=== PATIENT | female | born 1960 ===

== ENCOUNTER 2017-09-30 18:31 | Inpatient (IN) | payer MEDICAID ==
[2017-09-30 20:48] LABS: BASO % 0.1 % (0.0-2.0); HEMOGLOBIN 14.9 g/dL (12.0-16.0); LYMPH % 6.4 % (20.0-40.0); MEAN CELL VOLUME 89.1 fl (81.0-99.0); MEAN CORPUSCULAR HEMOGLOBIN 30.2 pg (27.0-31.0); MEAN CORPUSCULAR HGB CONC 33.8 g/dL (33.0-37.0); MEAN PLATELET VOLUME 8.6 fl (7.2-11.7); MONO # 0.9 K/uL (0.0-0.8); NEUT # 13.3 K/uL (1.8-7.0); NEUT % 87.5 % (50.0-75.0); PLATELET COUNT 252 K/uL (130-400); RBC 4.93 Mil/uL (3.80-5.20); RED CELL DISTRIBUTION WIDTH 13.7 % (11.5-14.5); WHITE BLOOD COUNT 15.2 K/uL (4.8-10.8)
[2017-09-30 20:53] LABS: INR 1.1; PROTHROMBIN TIME 11.9 Seconds (9.8-13.1)
[2017-09-30 20:55] LABS: CALCIUM 9.6 mg/dL (8.4-10.2); GFR AFRICAN-AMERICAN > 60; GFR NON-AFRICAN AMERICAN > 60; LIPASE 91 U/L (23-300); PARTIAL THROMBOPLASTIN TIME 30.7 Seconds (25.6-37.1)
[2017-09-30 20:56] LABS: ALB/GLOB RATIO 1.2 (1.0-2.1); ALT/SGPT 26 U/L (9-52); AST/SGOT 38 U/L (14-36); BLOOD UREA NITROGEN 10 mg/dl (7-17)
[2017-09-30 21:03] LABS: BARBITURATES, UR POSITIVE (NEGATIVE); BENZODIAZEPINES, UR NEGATIVE (NEGATIVE); OPIATES, UR NEGATIVE (NEGATIVE); PHENCYCLIDINE, UR NEGATIVE (NEGATIVE)
--- NOTE | 2017-09-30 21:11 | ED PDOC ---
HPI: Abdomen Time Seen by Provider: 09/30/17 19:34 Chief Complaint (Nursing): Abdominal Pain Chief Complaint (Provider): Abdominal Pain History Per: Patient History/Exam Limitations: no limitations Onset/Duration Of Symptoms: Days (x3) Current Symptoms Are (Timing): Still Present Additional Complaint(s): 57 year old female presents to ED with complaints of constant abdominal pain, significantly in the right upper region, ongoing for 3 days. She reports associated vomiting, decreased PO and fluid intake, nausea, weakness and constipation (x1 day). Patient denies fever, chills, diarrhea or urinary symptoms. Patient was seen at [facility] yesterday with similar symptoms with negative findings on labs. She states feeling worse since she was discharged. PMD: none provided Past Medical History Reviewed: Historical Data, Nursing Documentation, Vital Signs Vital Signs: Last Vital Signs Temp 98 F 10/04/17 16:39 Pulse 70 10/04/17 16:39 Resp 20 10/04/17 16:39 BP 110/66 10/04/17 16:39 Pulse Ox 95 10/04/17 16:39 - Medical History PMH: No Chronic Diseases - Surgical History Surgical History: No Surg Hx - Family History Family History: States: Unknown Family Hx - Social History Current smoker - smoking cessation education provided: No Ex-Smoker (has not smoked in the last 12 months): No Alcohol: None Drugs: Denies - Immunization History Hx Influenza Vaccination: No Hx Pneumococcal Vaccination: No - Home Medications Home Medications: Ambulatory Orders Medication Instructions Recorded Omeprazole 40 mg PO DAILY #30 capsule. 09/29/17 - Allergies Allergies/Adverse Reactions: Allergies Allergy/AdvReac Type Severity Reaction Status Date / Time No Known Allergies Allergy Verified 09/30/17 19:04 Review of Systems ROS Statement: Except As Marked, All Systems Reviewed And Found Negative Constitutional: Positive for: Weakness. Negative for: Fever, Chills Gastrointestinal: Positive for: Nausea, Vomiting, Abdominal Pain, Constipation ( x1 day). Negative for: Diarrhea, Other (po and fluid tolerance) Genitourinary Female: Negative for: Dysuria, Incontinence, Hematuria Physical Exam - Reviewed Nursing Documentation Reviewed: Yes Vital Signs Reviewed: Yes - Physical Exam Appears: Positive for: In Acute Distress (mildy painful) Head Exam: Positive for: ATRAUMATIC, NORMOCEPHALIC Skin: Positive for: Warm, Dry Eye Exam: Positive for: EOMI, PERRL ENT: Negative for: Pharyngeal Erythema, Tonsillar Exudate Neck: Positive for: Painless ROM, Supple Cardiovascular/Chest: Positive for: Regular Rate, Rhythm. Negative for: Murmur Respiratory: Positive for: Normal Breath Sounds. Negative for: Wheezing Gastrointestinal/Abdominal: Positive for: Tenderness (diffuse on palpation. significant on RUQ. (+) Chakraborty's sign). Negative for: Mass, Guarding, Rebound, Other ((-) McBurney's point tenderness) Back: Positive for: Normal Inspection. Negative for: L CVA Tenderness, R CVA Tenderness, Decreased ROM Extremity: Positive for: Normal ROM. Negative for: Deformity Lymphatic: Negative for: Adenopathy Neurologic/Psych: Positive for: Mood/Affect (tired). Negative for: Motor/ Sensory Deficits - Laboratory Results Result Diagrams: 10/03/17 05:20 10/03/17 20:20 - ECG O2 Sat by Pulse Oximetry: 95 (RA) Pulse Ox Interpretation: Normal Medical Decision Making Medical Decision Making: Initial Impression: Abdominal pain Differential includes but not limited to: gallbladder disease, pancreatitis, gastritis, colitis Initial Plan: * CMP * Drug screen, urine * Lact acid, plasma * Lipase * Urine dipstick * CBC * PTT * PT * Protonix 40mg IVP * Zofran 4mg IVP * Blood culture * US gallbladder & hepatic Time: 0 --US ABD FINDINGS: Liver: Unremarkable. Gallbladder: Cholelithiasis and sludge in the gallbladder. There is gallbladder wall thickening. Large calculus in the gallbladder neck with limited mobility is noted. As per the technologist note, sonographic Chakraborty's sign is positive. Common bile duct: Measures 5 mm. Pancreas: Visualized portion of the pancreas is prominent in size, correlate for acute pancreatitis. Right kidney: Unremarkable. No stones. No hydronephrosis. IMPRESSION: - Findings as described above, concerning for acute cholecystitis. - Visualized portion of the pancreas is prominent in size, correlate for acute pancreatitis Pt need hospitalization for cholecystitis [facility] Pt findings and plan of care. Scribe Attestation: Documented by Chiquis Neumann, acting as a scribe for Heike Ravi MD. Provider Scribe Attestation: All medical record entries made by the Scribe were at my direction and personally dictated by me. I have reviewed the chart and agree that the record accurately reflects my personal performance of the history, physical exam, medical decision making, and the department course for this patient. I have also personally directed, reviewed, and agree with the discharge instructions and disposition. Disposition - Clinical Impression Clinical Impression: Cholecystitis, Sepsis - Disposition Disposition Time: 22:00 Condition: SERIOUS - Pt Status Changed To: Hospital Disposition Of: Inpatient - Admit Certification Admit to Inpatient:: After my assessment, the patient will require hospitalization for at least two midnights. This is because of the severity of symptoms shown, intensity of services needed, and/or the medical risk in this patient being treated as an outpatient. - POA Present On Arrival: None
[2017-09-30] MEDS ORDERED: metroNIDAZOLE 500mg/100ml NS 100 ML IV STA (22:20)
[2017-09-30] MEDS ORDERED: Ciprofloxacin 400mg/200ml D5W 400 MG/200 ML BAG IV STA (22:20)
[2017-09-30] MEDS ORDERED: Sodium Chloride 0.9% 500 ML IV STA (22:21)
[2017-09-30 22:34] LABS: LYMPHOCYTE 6 % (20-50); NEUTROPHIL 94 % (42-75); PLATELET ESTIMATE NORMAL (NORMAL); TOTAL CELLS COUNTED 100
[2017-09-30] MEDS ORDERED: Morphine 4 MG/ML VIAL IVP STA (22:45)
[2017-09-30] MEDS ORDERED: Morphine 4 MG/ML VIAL ONE (22:46)
[2017-09-30] MEDS ORDERED: Ciprofloxacin 400mg/200ml D5W 400 MG/200 ML BAG IVPB ONE (22:47)
--- NOTE | 2017-09-30 23:27 | CP.PCM.CON ---
History of Present Illness - History of Present Illness History of Present Illness: General Surgery - Dr. Beckham 57 yo F w/ no PMH presenting with RUQ abdominal pain x3 days. Pt states the pain began about 3 days ago, described as located in the RUQ abdomen and radiating to the back, a sharp stabbing pain rated 10/10 currently, no aggravating or alleviating factors. Pt admits to associated nausea and vomited several times, white colored fluid and gastric contents. She was seen in the ED at a different hospital yesterday and given medication for gastritis but this did not help her pain. She states that she has never experienced these symptoms prior to this episode. She denies any Fevers/Chills, SOB/chest pain, Dysuria/Hematuria, Diarrhea. Pt admits to constipation x2days. PMH/PSH: denies any No medications NKDA Review of Systems - Review of Systems All systems: reviewed and no additional remarkable complaints except (as per HPI ) Past Patient History - Past Social History Alcohol: None Drugs: Denies - PSYCHIATRIC Hx Substance Use: No - SURGICAL HISTORY Hx Surgeries: No Meds Allergies/Adverse Reactions: Allergies Allergy/AdvReac Type Severity Reaction Status Date / Time No Known Allergies Allergy Verified 09/30/17 19:04 - Medications Medications: Current Medications Hydromorphone HCl (Dilaudid) 0.5 mg IVP Q3H PRN PRN Reason: Pain, moderate (4-7) Dextrose/Sodium Chloride (Dextrose 5%-0.9% Ns 500 Ml) 1,000 mls @ 100 mls/hr IV .Q10H GAVIN Ciprofloxacin (Cipro 400mg/200ml Dsw) 400 mg in 200 mls @ 200 mls/hr IVPB Q12 GAVIN PRN Reason: Protocol Metronidazole (Flagyl 500mg/100ml Ns) 100 mls @ 100 mls/hr IVPB Q8 GAVIN PRN Reason: Protocol Physical Exam - Constitutional Appears: No Acute Distress - Head Exam Head Exam: ATRAUMATIC, NORMAL INSPECTION, NORMOCEPHALIC - Eye Exam Eye Exam: Normal appearance. absent: Scleral icterus - ENT Exam ENT Exam: Mucous Membranes Moist - Respiratory Exam Respiratory Exam: NORMAL BREATHING PATTERN. absent: Respiratory Distress - Cardiovascular Exam Cardiovascular Exam: REGULAR RHYTHM - GI/Abdominal Exam GI & Abdominal Exam: Guarding, Soft, Tenderness (ruq, + murphys). absent: Distended, Firm, Hernia, Mass, Rigid - Neurological Exam Neurological exam: Alert, Oriented x3 - Psychiatric Exam Psychiatric exam: Normal Affect, Normal Mood - Skin Skin Exam: Dry, Intact Results - Vital Signs Recent Vital Signs: Last Vital Signs Temp 100.4 F H 09/30/17 23:13 Pulse 67 09/30/17 23:02 Resp 17 09/30/17 23:02 BP 139/69 09/30/17 23:02 Pulse Ox 95 09/30/17 23:06 - Labs Result Diagrams: 09/30/17 20:41 09/30/17 20:41 Labs: Laboratory Results - last 24 hr 09/30/17 09/30/17 09/30/17 20:41 20:41 20:41 WBC 15.2 H RBC 4.93 Hgb 14.9 Hct 44.0 MCV 89.1 MCH 30.2 MCHC 33.8 RDW 13.7 Plt Count 252 MPV 8.6 Neut % (Auto) 87.5 H Lymph % (Auto) 6.4 L [place] % (Auto) 6.0 Eos % (Auto) 0.0 Baso % (Auto) 0.1 Neut # (Auto) 13.3 H Lymph # (Auto) 1.0 [place] # (Auto) 0.9 H Eos # (Auto) 0.0 Baso # (Auto) 0.0 Neutrophils % (Manual) 94 H Lymphocytes % (Manual) 6 L Monocytes % (Manual) TEST NOT PERFORMED Platelet Estimate Normal PT INR APTT Sodium 132 Potassium 4.9 Chloride 95 L Carbon Dioxide 23 Anion Gap 19 BUN 10 Creatinine 0.6 L Est GFR ( Amer) > 60 Est GFR (Non-Af Amer) > 60 Random Glucose 142 H Lactic Acid 1.1 Calcium 9.6 Total Bilirubin 1.2 AST 38 H D ALT 26 Alkaline Phosphatase 58 Total Protein 9.1 H Albumin 5.0 Globulin 4.1 H Albumin/Globulin Ratio 1.2 Lipase 91 Urine Opiates Screen Urine Methadone Screen Ur Barbiturates Screen Ur Phencyclidine Scrn Ur Amphetamines Screen U Benzodiazepines Scrn U Oth Cocaine Metabols U Cannabinoids Screen 09/30/17 09/30/17 20:41 20:41 WBC RBC Hgb Hct MCV MCH MCHC RDW Plt Count MPV Neut % (Auto) Lymph % (Auto) [place] % (Auto) Eos % (Auto) Baso % (Auto) Neut # (Auto) Lymph # (Auto) [place] # (Auto) Eos # (Auto) Baso # (Auto) Neutrophils % (Manual) Lymphocytes % (Manual) Monocytes % (Manual) Platelet Estimate PT 11.9 INR 1.1 APTT 30.7 Sodium Potassium Chloride Carbon Dioxide Anion Gap BUN Creatinine Est GFR ( Amer) Est GFR (Non-Af Amer) Random Glucose Lactic Acid Calcium Total Bilirubin AST ALT Alkaline Phosphatase Total Protein Albumin Globulin Albumin/Globulin Ratio Lipase Urine Opiates Screen Negative Urine Methadone Screen Negative Ur Barbiturates Screen Positive H Ur Phencyclidine Scrn Negative Ur Amphetamines Screen Negative U Benzodiazepines Scrn Negative U Oth Cocaine Metabols Negative U Cannabinoids Screen Negative - Imaging and Cardiology US - abdomen Status: Image reviewed by me, Report reviewed by me Assessment & Plan - Assessment and Plan (Free Text) Assessment: 57 yo F w/ acute cholecystitis -Admitted to medical service -Maintain NPO, IVF -IV Abx -Pain control prn -Plan for cholecystectomy this admission DW Dr. Chapincito Del Rosario PGY4
[2017-10-01] MEDS: metroNIDAZOLE 500mg/100ml NS 100 ML IVPB SCH ×3 (00:53→17:06)
[2017-10-01] MEDS: HYDROmorphone 0.5 mg/0.5 ml ISec IVP PRN ×2 (05:44→09:30)
[2017-10-01 07:05] LABS: HEMOGLOBIN 14.5 g/dL (12.0-16.0); LYMPH # 0.9 K/uL (1.0-4.3); LYMPH % 5.9 % (20.0-40.0); MEAN CELL VOLUME 89.2 fl (81.0-99.0); MEAN CORPUSCULAR HEMOGLOBIN 30.4 pg (27.0-31.0); MEAN CORPUSCULAR HGB CONC 34.2 g/dL (33.0-37.0); MEAN PLATELET VOLUME 8.6 fl (7.2-11.7); MONO # 1.3 K/uL (0.0-0.8); MONO % 8.5 % (0.0-10.0); NEUT # 12.8 K/uL (1.8-7.0); NEUT % 85.6 % (50.0-75.0); RBC 4.77 Mil/uL (3.80-5.20); RED CELL DISTRIBUTION WIDTH 13.6 % (11.5-14.5); WHITE BLOOD COUNT 14.9 K/uL (4.8-10.8)
--- NOTE | 2017-10-01 07:12 | CARD ---
APPROVED REPORT Date of service: 09/30/2017 <Conclusion> Normal sinus rhythm Normal ECG
--- NOTE | 2017-10-01 08:26 | CP.PCM.HP ---
History of Present Illness - History of Present Illness History of Present Illness: 57 YR OLD FEMALE ADMITTED WITH ABDOMINAL PAINS X 3 DAYS.SEEN BY [facility] AND DIAGNOSED WITH ACUTE CHOLECYSTITIS. PRESENTLY IN PAIN AND ON IV NARCOTICS AND ANTIBIOTICS. UNREMARKABLE PAINS MEDICAL AND FAMILY HISTORY Present on Admission - Present on Admission Any Indicators Present on Admission: No Past Patient History - Past Social History Smoking Status: Never Smoked - MUSCULOSKELETAL/RHEUMATOLOGICAL Hx Falls: No - PSYCHIATRIC Hx Substance Use: No - SURGICAL HISTORY Hx Surgeries: No - ANESTHESIA Hx Anesthesia: No Meds Allergies/Adverse Reactions: Allergies Allergy/AdvReac Type Severity Reaction Status Date / Time No Known Allergies Allergy Verified 09/30/17 19:04 Physical Exam - Constitutional Appears: In Acute Distress - Head Exam Head Exam: ATRAUMATIC, NORMAL INSPECTION, NORMOCEPHALIC - Eye Exam Eye Exam: EOMI, Normal appearance, PERRL Pupil Exam: NORMAL ACCOMODATION, PERRL - ENT Exam ENT Exam: Mucous Membranes Moist, Normal Exam - Neck Exam Neck exam: Positive for: Normal Inspection - Respiratory Exam Respiratory Exam: Clear to Auscultation Bilateral, NORMAL BREATHING PATTERN - Cardiovascular Exam Cardiovascular Exam: REGULAR RHYTHM - GI/Abdominal Exam GI & Abdominal Exam: Normal Bowel Sounds, Soft, Tenderness Additional comments: RUQ TENDERNESS - Rectal Exam Rectal Exam: NORMAL INSPECTION - Extremities Exam Extremities exam: Positive for: normal inspection - Back Exam Back exam: NORMAL INSPECTION - Neurological Exam Neurological exam: Alert, CN II-XII Intact, Normal Gait, Oriented x3, Reflexes Normal - Psychiatric Exam Psychiatric exam: Normal Affect, Normal Mood - Skin Skin Exam: Dry, Intact, Normal Color, Warm Results - Vital Signs Recent Vital Signs: Last Vital Signs Temp 98 F 10/01/17 08:17 Pulse 66 10/01/17 08:17 Resp 20 10/01/17 08:17 BP 143/76 10/01/17 08:17 Pulse Ox 98 10/01/17 08:17 - Labs Result Diagrams: 10/01/17 05:45 09/30/17 20:41 Labs: Laboratory Results - last 24 hr 09/30/17 09/30/17 09/30/17 20:41 20:41 20:41 WBC 15.2 H RBC 4.93 Hgb 14.9 Hct 44.0 MCV 89.1 MCH 30.2 MCHC 33.8 RDW 13.7 Plt Count 252 MPV 8.6 Neut % (Auto) 87.5 H Lymph % (Auto) 6.4 L [place] % (Auto) 6.0 Eos % (Auto) 0.0 Baso % (Auto) 0.1 Neut # (Auto) 13.3 H Lymph # (Auto) 1.0 [place] # (Auto) 0.9 H Eos # (Auto) 0.0 Baso # (Auto) 0.0 Neutrophils % (Manual) 94 H Lymphocytes % (Manual) 6 L Monocytes % (Manual) TEST NOT PERFORMED Platelet Estimate Normal PT INR APTT Sodium 132 Potassium 4.9 Chloride 95 L Carbon Dioxide 23 Anion Gap 19 BUN 10 Creatinine 0.6 L Est GFR ( Amer) > 60 Est GFR (Non-Af Amer) > 60 Random Glucose 142 H Lactic Acid 1.1 Calcium 9.6 Total Bilirubin 1.2 AST 38 H D ALT 26 Alkaline Phosphatase 58 Total Protein 9.1 H Albumin 5.0 Globulin 4.1 H Albumin/Globulin Ratio 1.2 Lipase 91 Urine Opiates Screen Urine Methadone Screen Ur Barbiturates Screen Ur Phencyclidine Scrn Ur Amphetamines Screen U Benzodiazepines Scrn U Oth Cocaine Metabols U Cannabinoids Screen 09/30/17 09/30/17 10/01/17 20:41 20:41 05:45 WBC 14.9 H RBC 4.77 Hgb 14.5 Hct 42.5 MCV 89.2 MCH 30.4 MCHC 34.2 RDW 13.6 Plt Count 248 MPV 8.6 Neut % (Auto) 85.6 H Lymph % (Auto) 5.9 L [place] % (Auto) 8.5 Eos % (Auto) 0.0 Baso % (Auto) 0.0 Neut # (Auto) 12.8 H Lymph # (Auto) 0.9 L [place] # (Auto) 1.3 H Eos # (Auto) 0.0 Baso # (Auto) 0.0 Neutrophils % (Manual) Lymphocytes % (Manual) Monocytes % (Manual) Platelet Estimate PT 11.9 INR 1.1 APTT 30.7 Sodium Potassium Chloride Carbon Dioxide Anion Gap BUN Creatinine Est GFR ( Amer) Est GFR (Non-Af Amer) Random Glucose Lactic Acid Calcium Total Bilirubin AST ALT Alkaline Phosphatase Total Protein Albumin Globulin Albumin/Globulin Ratio Lipase Urine Opiates Screen Negative Urine Methadone Screen Negative Ur Barbiturates Screen Positive H Ur Phencyclidine Scrn Negative Ur Amphetamines Screen Negative U Benzodiazepines Scrn Negative U Oth Cocaine Metabols Negative U Cannabinoids Screen Negative Assessment & Plan - Assessment and Plan (Free Text) Assessment: ACUTE CHOLECYSTITIS Plan: CONTINUE IV ANTIBIOTICS AND ANALGESICS GASTROENTEROLOGY EVALUATION MEDICALLY CLEARED FOR SURGERY
[2017-10-01 09:50] LABS: BLOOD UREA NITROGEN 8 mg/dl (7-17)
[2017-10-01 09:51] LABS: ALB/GLOB RATIO 1.2 (1.0-2.1); ALBUMIN 4.4 g/dL (3.5-5.0); ALT/SGPT 23 U/L (9-52); AST/SGOT 21 U/L (14-36); CALCIUM 9.5 mg/dL (8.4-10.2); GFR AFRICAN-AMERICAN > 60; GFR NON-AFRICAN AMERICAN > 60
[2017-10-01] MEDS: Ciprofloxacin 400mg/200ml D5W 400 MG/200 ML BAG IVPB SCH ×2 (10:00→21:11)
--- NOTE | 2017-10-01 10:05 | RAD ---
Date of service: 09/30/2017 HISTORY: cholecystitis COMPARISON: 03/03/2011. FINDINGS: LUNGS: The lungs are clear. There is right basilar atelectasis. There is mild pulmonary venous congestion. PLEURA: No significant pleural effusion identified, no pneumothorax apparent. CARDIOVASCULAR: Normal. OSSEOUS STRUCTURES: No significant abnormalities. VISUALIZED UPPER ABDOMEN: Normal. OTHER FINDINGS: None. IMPRESSION: No active pulmonary disease.
--- NOTE | 2017-10-01 10:17 | CP.PCM.CON ---
History of Present Illness - History of Present Illness History of Present Illness: 57 yo female admitted with abdominal pain since Saturday. Previously well. Was in another ER and sent home. Review of Systems - Constitutional Constitutional: absent: Chills - EENT Eyes: absent: Change in Vision Ears: absent: Ear Pain Nose/Mouth/Throat: absent: Epistaxis - Cardiovascular Cardiovascular: absent: Chest Pain - Respiratory Respiratory: absent: Dyspnea - Gastrointestinal Gastrointestinal: Abdominal Pain, Nausea Past Patient History - Past Social History Smoking Status: Never Smoked - MUSCULOSKELETAL/RHEUMATOLOGICAL Hx Falls: No - PSYCHIATRIC Hx Substance Use: No - SURGICAL HISTORY Hx Surgeries: No - ANESTHESIA Hx Anesthesia: No Meds Allergies/Adverse Reactions: Allergies Allergy/AdvReac Type Severity Reaction Status Date / Time No Known Allergies Allergy Verified 09/30/17 19:04 - Medications Medications: Current Medications Hydromorphone HCl (Dilaudid) 0.5 mg IVP Q3H PRN PRN Reason: Pain, moderate (4-7) Last Admin: 10/01/17 09:30 Dose: 0.5 mg Dextrose/Sodium Chloride (Dextrose 5%-0.9% Ns 500 Ml) 1,000 mls @ 100 mls/hr IV .Q10H GAVIN Last Admin: 10/01/17 00:27 Dose: 100 mls/hr Ciprofloxacin (Cipro 400mg/200ml Dsw) 400 mg in 200 mls @ 200 mls/hr IVPB Q12 GAVIN PRN Reason: Protocol Metronidazole (Flagyl 500mg/100ml Ns) 100 mls @ 100 mls/hr IVPB Q8 GAVIN PRN Reason: Protocol Last Admin: 10/01/17 08:24 Dose: 100 mls/hr Morphine Sulfate (Morphine) 2 mg IVP Q4 PRN PRN Reason: Pain, Mild (1-3) Morphine Sulfate (Morphine) 6 mg IVP Q4 PRN PRN Reason: Pain, severe (8-10) Physical Exam - Constitutional Appears: In Acute Distress - Head Exam Head Exam: ATRAUMATIC - Eye Exam Eye Exam: Normal appearance - ENT Exam ENT Exam: Mucous Membranes Moist - Neck Exam Neck exam: Positive for: Normal Inspection - Respiratory Exam Respiratory Exam: Clear to Auscultation Bilateral, NORMAL BREATHING PATTERN - Cardiovascular Exam Cardiovascular Exam: REGULAR RHYTHM, +S1, +S2 - GI/Abdominal Exam GI & Abdominal Exam: Normal Bowel Sounds, Tenderness Additional comments: marked RUQ tenderness and guarding Results - Vital Signs Recent Vital Signs: Last Vital Signs Temp 98 F 10/01/17 08:17 Pulse 66 10/01/17 08:17 Resp 20 10/01/17 08:17 BP 143/76 10/01/17 08:17 Pulse Ox 98 10/01/17 08:17 - Labs Result Diagrams: 10/01/17 05:45 10/01/17 07:15 Labs: Laboratory Results - last 24 hr 09/30/17 09/30/17 09/30/17 20:41 20:41 20:41 WBC 15.2 H RBC 4.93 Hgb 14.9 Hct 44.0 MCV 89.1 MCH 30.2 MCHC 33.8 RDW 13.7 Plt Count 252 MPV 8.6 Neut % (Auto) 87.5 H Lymph % (Auto) 6.4 L [place] % (Auto) 6.0 Eos % (Auto) 0.0 Baso % (Auto) 0.1 Neut # (Auto) 13.3 H Lymph # (Auto) 1.0 [place] # (Auto) 0.9 H Eos # (Auto) 0.0 Baso # (Auto) 0.0 Neutrophils % (Manual) 94 H Lymphocytes % (Manual) 6 L Monocytes % (Manual) TEST NOT PERFORMED Platelet Estimate Normal PT INR APTT Sodium 132 Potassium 4.9 Chloride 95 L Carbon Dioxide 23 Anion Gap 19 BUN 10 Creatinine 0.6 L Est GFR ( Amer) > 60 Est GFR (Non-Af Amer) > 60 Random Glucose 142 H Lactic Acid 1.1 Calcium 9.6 Total Bilirubin 1.2 AST 38 H D ALT 26 Alkaline Phosphatase 58 Total Protein 9.1 H Albumin 5.0 Globulin 4.1 H Albumin/Globulin Ratio 1.2 Lipase 91 Urine Opiates Screen Urine Methadone Screen Ur Barbiturates Screen Ur Phencyclidine Scrn Ur Amphetamines Screen U Benzodiazepines Scrn U Oth Cocaine Metabols U Cannabinoids Screen 09/30/17 09/30/17 10/01/17 20:41 20:41 05:45 WBC 14.9 H RBC 4.77 Hgb 14.5 Hct 42.5 MCV 89.2 MCH 30.4 MCHC 34.2 RDW 13.6 Plt Count 248 MPV 8.6 Neut % (Auto) 85.6 H Lymph % (Auto) 5.9 L [place] % (Auto) 8.5 Eos % (Auto) 0.0 Baso % (Auto) 0.0 Neut # (Auto) 12.8 H Lymph # (Auto) 0.9 L [place] # (Auto) 1.3 H Eos # (Auto) 0.0 Baso # (Auto) 0.0 Neutrophils % (Manual) Lymphocytes % (Manual) Monocytes % (Manual) Platelet Estimate PT 11.9 INR 1.1 APTT 30.7 Sodium Potassium Chloride Carbon Dioxide Anion Gap BUN Creatinine Est GFR ( Amer) Est GFR (Non-Af Amer) Random Glucose Lactic Acid Calcium Total Bilirubin AST ALT Alkaline Phosphatase Total Protein Albumin Globulin Albumin/Globulin Ratio Lipase Urine Opiates Screen Negative Urine Methadone Screen Negative Ur Barbiturates Screen Positive H Ur Phencyclidine Scrn Negative Ur Amphetamines Screen Negative U Benzodiazepines Scrn Negative U Oth Cocaine Metabols Negative U Cannabinoids Screen Negative 10/01/17 07:15 WBC RBC Hgb Hct MCV MCH MCHC RDW Plt Count MPV Neut % (Auto) Lymph % (Auto) [place] % (Auto) Eos % (Auto) Baso % (Auto) Neut # (Auto) Lymph # (Auto) [place] # (Auto) Eos # (Auto) Baso # (Auto) Neutrophils % (Manual) Lymphocytes % (Manual) Monocytes % (Manual) Platelet Estimate PT INR APTT Sodium 136 Potassium 3.7 Chloride 100 Carbon Dioxide 25 Anion Gap 15 BUN 8 Creatinine 0.7 Est GFR ( Amer) > 60 Est GFR (Non-Af Amer) > 60 Random Glucose 175 H Lactic Acid Calcium 9.5 Total Bilirubin 0.9 AST 21 ALT 23 Alkaline Phosphatase 60 Total Protein 8.0 Albumin 4.4 Globulin 3.6 Albumin/Globulin Ratio 1.2 Lipase Urine Opiates Screen Urine Methadone Screen Ur Barbiturates Screen Ur Phencyclidine Scrn Ur Amphetamines Screen U Benzodiazepines Scrn U Oth Cocaine Metabols U Cannabinoids Screen - Imaging and Cardiology US - abdomen Status: Report reviewed by me Assessment & Plan (1) Cholecystitis Assessment and Plan: RUQ pain with positive sonographic Chakraborty sign and cystic duct stone. Continue IV abx, maintian NPO, and lap kathrine. Status: Acute
--- NOTE | 2017-10-01 10:48 | CP.PCM.PN ---
Subjective - Date & Time of Evaluation Date of Evaluation: 10/01/17 Time of Evaluation: 10:45 - Subjective Subjective: General Surgery Pt seen and examined this AM. She c/o severe RUQ pain. (-) N/V, (-) chills. Labs and vitals noted PE Gen: pt laying in bed in moderate distress Skin: warm and dry Cardio: s1s2 RRR Lungs: CTA bilaterally Abd: Soft, (+) ruq and epigastric tenderness, (+) Chakraborty's Extr: (-) calf tenderness a/p Acute cholecystitis Keep NPO Will need Lap kathrine this admission Continue IVF Continue antibiotics Pain medications adjusted. Objective - Vital Signs/Intake and Output Vital Signs (last 24 hours): Temp Pulse Resp BP Pulse Ox 98 F 66 20 143/76 98 10/01/17 08:17 10/01/17 08:17 10/01/17 08:17 10/01/17 08:17 10/01/17 08:17 - Medications Medications: Current Medications Hydromorphone HCl (Dilaudid) 0.5 mg IVP Q3H PRN PRN Reason: Pain, moderate (4-7) Last Admin: 10/01/17 09:30 Dose: 0.5 mg Dextrose/Sodium Chloride (Dextrose 5%-0.9% Ns 500 Ml) 1,000 mls @ 100 mls/hr IV .Q10H GAVIN Last Admin: 10/01/17 00:27 Dose: 100 mls/hr Ciprofloxacin (Cipro 400mg/200ml Dsw) 400 mg in 200 mls @ 200 mls/hr IVPB Q12 GAVIN PRN Reason: Protocol Metronidazole (Flagyl 500mg/100ml Ns) 100 mls @ 100 mls/hr IVPB Q8 GAVIN PRN Reason: Protocol Last Admin: 10/01/17 08:24 Dose: 100 mls/hr Morphine Sulfate (Morphine) 2 mg IVP Q4 PRN PRN Reason: Pain, Mild (1-3) Morphine Sulfate (Morphine) 6 mg IVP Q4 PRN PRN Reason: Pain, severe (8-10) - Labs Labs: 10/01/17 05:45 10/01/17 07:15 PT 11.9 Seconds (9.8-13.1) 09/30/17 20:41 INR 1.1 09/30/17 20:41 APTT 30.7 Seconds (25.6-37.1) 09/30/17 20:41
--- NOTE | 2017-10-01 12:34 | US ---
Date of service: 09/30/2017 HISTORY: Right upper quadrant pain and vomiting. COMPARISON: None. TECHNIQUE: Sonographic evaluation of the right upper quadrant of the abdomen. FINDINGS: LIVER: Measures 14.0 cm in length. Normal echogenicity of the liver parenchyma. No mass. No intrahepatic bile duct dilatation. GALLBLADDER: Cholelithiasis. Negative study for gallbladder wall thickening, pericholecystic fluid, sonographic Chakraborty's sign. A solitary stone lodged in the gallbladder neck measures 3.8 cm. COMMON BILE DUCT: Measures 5 mm. No stones. No dilatation. PANCREAS: Unremarkable as visualized. No mass. No ductal dilatation. RIGHT KIDNEY: Measures 4.2 x 10.2 cm in length. Normal echogenicity. No calculus, mass, or hydronephrosis. AORTA: No aneurysmal dilatation. IVC: Unremarkable. OTHER FINDINGS: None . IMPRESSION: Cholelithiasis. No sonographic evidence of acute cholecystitis. Concordant findings (preliminary report) provided by Benny.
[2017-10-01] MEDS: HYDROmorphone 1 mg/ml ISec IVP PRN (20:01)
[2017-10-02] MEDS: metroNIDAZOLE 500mg/100ml NS 100 ML IVPB SCH ×3 (00:38→16:47)
[2017-10-02] MEDS: HYDROmorphone 1 mg/ml ISec IVP PRN ×3 (05:07→21:09)
[2017-10-02 06:24] LABS: HEMOGLOBIN 13.6 g/dL (12.0-16.0); LYMPH % 5.4 % (20.0-40.0); MEAN CELL VOLUME 90.4 fl (81.0-99.0); MEAN CORPUSCULAR HEMOGLOBIN 30.2 pg (27.0-31.0); MEAN CORPUSCULAR HGB CONC 33.4 g/dL (33.0-37.0); MEAN PLATELET VOLUME 8.5 fl (7.2-11.7); MONO # 1.4 K/uL (0.0-0.8); MONO % 7.6 % (0.0-10.0); NEUT # 15.8 K/uL (1.8-7.0); RBC 4.5 Mil/uL (3.80-5.20); RED CELL DISTRIBUTION WIDTH 13.8 % (11.5-14.5); WHITE BLOOD COUNT 18.2 K/uL (4.8-10.8)
[2017-10-02 06:36] LABS: ALB/GLOB RATIO 1.1 (1.0-2.1); ALBUMIN 3.4 g/dL (3.5-5.0); ALT/SGPT 24 U/L (9-52); AST/SGOT 15 U/L (14-36); BLOOD UREA NITROGEN 10 mg/dl (7-17); CALCIUM 8.2 mg/dL (8.4-10.2); GFR AFRICAN-AMERICAN > 60; GFR NON-AFRICAN AMERICAN > 60
[2017-10-02] MEDS ORDERED: Bupivacaine HCl 0.5% PF (30 ml) Inj ONE (07:56)
[2017-10-02] MEDS ORDERED: D5 IV SCH (08:00)
[2017-10-02] MEDS: Potassium Chloride 20 mEq 100 ML IVPB SCH ×2 (08:00→09:31)
[2017-10-02] MEDS ORDERED: D5 NS IV SCH (08:00)
[2017-10-02] MEDS ORDERED: POTASSIUM CHL IV SCH (08:00)
--- NOTE | 2017-10-02 08:08 | CP.PCM.PN ---
Subjective - Date & Time of Evaluation Date of Evaluation: 10/02/17 Time of Evaluation: 08:09 - Subjective Subjective: RUQ ABDOMINAL PAIN PERSISTS NO CHEST PAINS/SOB AFEBRILE Objective - Vital Signs/Intake and Output Vital Signs (last 24 hours): Temp Pulse Resp BP Pulse Ox 99.2 F 77 18 115/67 95 10/02/17 00:44 10/02/17 00:44 10/02/17 00:44 10/02/17 00:44 10/02/17 00:44 - Medications Medications: Current Medications Acetaminophen (Tylenol 325mg Tab) 650 mg PO Q4 PRN PRN Reason: Pain, Mild (1-3) Hydromorphone HCl (Dilaudid) 0.5 mg IVP Q3H PRN PRN Reason: Pain, moderate (4-7) Last Admin: 10/01/17 09:30 Dose: 0.5 mg Hydromorphone HCl (Dilaudid) 1 mg IVP Q3 PRN PRN Reason: Pain, severe (8-10) Last Admin: 10/02/17 05:07 Dose: 1 mg Dextrose/Sodium Chloride (Dextrose 5%-0.9% Ns 500 Ml) 1,000 mls @ 100 mls/hr IV .Q10H [facility] Last Admin: 10/02/17 05:10 Dose: 100 mls/hr Ciprofloxacin (Cipro 400mg/200ml Dsw) 400 mg in 200 mls @ 200 mls/hr IVPB Q12 [facility] PRN Reason: Protocol Last Admin: 10/01/17 21:11 Dose: 200 mls/hr Metronidazole (Flagyl 500mg/100ml Ns) 100 mls @ 100 mls/hr IVPB Q8 [facility] PRN Reason: Protocol Last Admin: 10/02/17 00:38 Dose: 100 mls/hr Potassium Chloride (Potassium Chloride 20 Meq/100 Ml) 100 mls @ 50 mls/hr IVPB Q2 [facility] Stop: 10/02/17 11:59 - Labs Labs: 10/02/17 05:20 10/02/17 05:20 PT 11.9 Seconds (9.8-13.1) 09/30/17 20:41 INR 1.1 09/30/17 20:41 APTT 30.7 Seconds (25.6-37.1) 09/30/17 20:41 - Constitutional Appears: In Acute Distress - Head Exam Head Exam: ATRAUMATIC, NORMAL INSPECTION, NORMOCEPHALIC - Eye Exam Eye Exam: EOMI, Normal appearance, PERRL Pupil Exam: NORMAL ACCOMODATION, PERRL - ENT Exam ENT Exam: Mucous Membranes Moist, Normal Exam - Neck Exam Neck Exam: Full ROM, Normal Inspection. absent: Lymphadenopathy - Respiratory Exam Respiratory Exam: Clear to Ausculation Bilateral, NORMAL BREATHING PATTERN - Cardiovascular Exam Cardiovascular Exam: REGULAR RHYTHM, +S1, +S2. absent: Murmur - GI/Abdominal Exam GI & Abdominal Exam: Soft, Tenderness, Normal Bowel Sounds - Rectal Exam Rectal Exam: NORMAL INSPECTION - Extremities Exam Extremities Exam: Full ROM, Normal Capillary Refill, Normal Inspection. absent : Joint Swelling, Pedal Edema - Back Exam Back Exam: NORMAL INSPECTION - Neurological Exam Neurological Exam: Alert, Awake, CN II-XII Intact, Normal Gait, Oriented x3 - Psychiatric Exam Psychiatric exam: Normal Affect, Normal Mood - Skin Skin Exam: Dry, Intact, Normal Color, Warm Assessment and Plan - Assessment and Plan (Free Text) Assessment: ACUTE CHOLECYSTITIS LEUKOCYTOSIS HYPOKALEMIA Plan: CONTINUE IV ANTIBIOTICS K+SUPPLEMENTS ANALGESICS FOR PAIN FOR CHOLECYSTECTOMY TODAY
[2017-10-02] MEDS ORDERED: Potassium Phosphate 15 MMOLE in Dextrose 5% In Water 250 ML IV ONE (08:46)
[2017-10-02] MEDS: Ciprofloxacin 400mg/200ml D5W 400 MG/200 ML BAG IVPB SCH ×2 (09:00→21:14)
[2017-10-02] MEDS ORDERED: Dextrose 5%/0.9% NS 1,000 ML IV ONE (09:45)
[2017-10-02] MEDS ORDERED: Lactated Ringer's 1,000 ML IV ONE (10:00)
[2017-10-02] MEDS ORDERED: metroNIDAZOLE 500mg/100ml NS IVPB ONE (10:10)
[2017-10-02] MEDS ORDERED: Ciprofloxacin 400mg/200ml D5W IVPB ONE (10:15)
--- NOTE | 2017-10-02 11:25 | PCM.SURG1 ---
Surgeon's Initial Post Op Note - Surgeon's Notes Surgeon: Dr. Beckham Head Boys Tennis Coach: Dr. Del Rosario PGY4; Angie ROSA Type of Anesthesia: General Endo Anesthesia Administered By: Carmen Pre-Operative Diagnosis: Acute Cholecystitis Operative Findings: same Post-Operative Diagnosis: same Operation Performed: Laparoscopic Cholecystectomy Specimen/Specimens Removed: gallbladder Estimated Blood Loss: EBL {In ML}: 10 Blood Products Given: N/A Drains Used: No Drains Post-Op Condition: Good Date of Surgery/Procedure: 10/02/17 Time of Surgery/Procedure: 11:25
[2017-10-02] MEDS ORDERED: Lactated Ringer's 1,000 ML IV SCH (11:30)
[2017-10-02] MEDS: HYDROmorphone 0.5 mg/0.5 ml ISec IVP PRN ×4 (11:34→12:22)
[2017-10-02] MEDS ORDERED: HYDROmorphone 1 mg/ml ISec ONE ×3 (11:55→12:22)
[2017-10-03] MEDS: metroNIDAZOLE 500mg/100ml NS 100 ML IVPB SCH ×3 (00:53→19:37)
[2017-10-03] MEDS: HYDROmorphone 1 mg/ml ISec IVP PRN ×3 (05:49→18:46)
[2017-10-03 06:28] LABS: BASO % 0.1 % (0.0-2.0); HEMOGLOBIN 12.2 g/dL (12.0-16.0); LYMPH # 0.6 K/uL (1.0-4.3); LYMPH % 8.2 % (20.0-40.0); MEAN CELL VOLUME 89.9 fl (81.0-99.0); MEAN CORPUSCULAR HEMOGLOBIN 30.9 pg (27.0-31.0); MEAN CORPUSCULAR HGB CONC 34.4 g/dL (33.0-37.0); MEAN PLATELET VOLUME 8.6 fl (7.2-11.7); MONO # 0.4 K/uL (0.0-0.8); MONO % 6.1 % (0.0-10.0); NEUT # 5.9 K/uL (1.8-7.0); NEUT % 85.6 % (50.0-75.0); RBC 3.94 Mil/uL (3.80-5.20); RED CELL DISTRIBUTION WIDTH 13.8 % (11.5-14.5); WHITE BLOOD COUNT 6.9 K/uL (4.8-10.8)
[2017-10-03 07:07] LABS: ALB/GLOB RATIO 0.9 (1.0-2.1); ALBUMIN 2.8 g/dL (3.5-5.0); ALT/SGPT 98 U/L (9-52); AST/SGOT 115 U/L (14-36); BLOOD UREA NITROGEN 10 mg/dl (7-17); CALCIUM 7.5 mg/dL (8.4-10.2); GFR AFRICAN-AMERICAN > 60; GFR NON-AFRICAN AMERICAN > 60
[2017-10-03] MEDS ORDERED: Potassium Phosphate 30 MMOLE in Dextrose 5% In Water 500 ML IV ONE (08:30)
--- NOTE | 2017-10-03 08:35 | CP.PCM.PN ---
Subjective - Date & Time of Evaluation Date of Evaluation: 10/03/17 Time of Evaluation: 08:36 - Subjective Subjective: CLINICALLY IMPROVING S/P LAP BEVERLY TOLERATING DIET AFEBRILE Objective - Vital Signs/Intake and Output Vital Signs (last 24 hours): Temp Pulse Resp BP Pulse Ox 98.6 F 88 20 101/63 90 L 10/03/17 08:03 10/03/17 08:03 10/03/17 08:03 10/03/17 08:03 10/03/17 08:03 Intake and Output: 10/03/17 10/03/17 06:59 18:59 Output Total 10 Balance -10 - Medications Medications: Current Medications Acetaminophen (Tylenol 325mg Tab) 650 mg PO Q4 PRN PRN Reason: Pain, Mild (1-3) Hydromorphone HCl (Dilaudid) 0.5 mg IVP Q3H PRN PRN Reason: Pain, moderate (4-7) Last Admin: 10/03/17 05:49 Dose: 0.5 mg Dextrose/Sodium Chloride (Dextrose 5%-0.9% Ns 500 Ml) 1,000 mls @ 100 mls/hr IV .Q10H [facility] Last Admin: 10/03/17 01:42 Dose: Not Given Ciprofloxacin (Cipro 400mg/200ml Dsw) 400 mg in 200 mls @ 200 mls/hr IVPB Q12 [facility] PRN Reason: Protocol Last Admin: 10/02/17 21:14 Dose: 200 mls/hr Metronidazole (Flagyl 500mg/100ml Ns) 100 mls @ 100 mls/hr IVPB Q8 [facility] PRN Reason: Protocol Last Admin: 10/03/17 00:53 Dose: 100 mls/hr Potassium Phosphate 30 mmole/ (Dextrose) 510 mls @ 84 mls/hr IV .Q6H5M [facility] Stop: 10/03/17 14:34 - Labs Labs: 10/03/17 05:20 10/03/17 05:20 PT 11.9 Seconds (9.8-13.1) 09/30/17 20:41 INR 1.1 09/30/17 20:41 APTT 30.7 Seconds (25.6-37.1) 09/30/17 20:41 - Constitutional Appears: Well - Head Exam Head Exam: ATRAUMATIC, NORMAL INSPECTION, NORMOCEPHALIC - Eye Exam Eye Exam: EOMI, Normal appearance, PERRL Pupil Exam: NORMAL ACCOMODATION, PERRL - ENT Exam ENT Exam: Mucous Membranes Moist, Normal Exam - Neck Exam Neck Exam: Full ROM, Normal Inspection. absent: Lymphadenopathy - Respiratory Exam Respiratory Exam: Clear to Ausculation Bilateral, NORMAL BREATHING PATTERN - Cardiovascular Exam Cardiovascular Exam: REGULAR RHYTHM, +S1, +S2. absent: Murmur - GI/Abdominal Exam GI & Abdominal Exam: Soft, Tenderness, Normal Bowel Sounds - Rectal Exam Rectal Exam: NORMAL INSPECTION Additional comments: SURGICAL SITE CLEAN - Extremities Exam Extremities Exam: Full ROM, Normal Capillary Refill, Normal Inspection. absent : Joint Swelling, Pedal Edema - Back Exam Back Exam: NORMAL INSPECTION - Neurological Exam Neurological Exam: Alert, Awake, CN II-XII Intact, Normal Gait, Oriented x3 - Psychiatric Exam Psychiatric exam: Normal Affect, Normal Mood - Skin Skin Exam: Dry, Intact, Normal Color, Warm Assessment and Plan - Assessment and Plan (Free Text) Assessment: S/P CHOLECYSTECTOMY ACUTE CHOLECYSTITIS LEUKOCYTOSIS--IMPROVED HYPOPHOSPHATEMIA HYPOCALCEMIA HYPOKALEMIA Plan: CONTINUE IV ANTIBIOTICS CORRECT ELECTROLYTE IMBALANCE DISCHARGE IN AM IF STABLE
--- NOTE | 2017-10-03 08:42 | CP.PCM.PN ---
<Juli Del Rosario - Last Filed: 10/03/17 08:52> Subjective - Date & Time of Evaluation Date of Evaluation: 10/03/17 Time of Evaluation: 08:41 - Subjective Subjective: General surgery - Dr. Beckham Pt S&EJj NUGENT. Pt tolerating clear liquids. She will try regular food this morning. She has been OOB within her room. She denies any Nausea/vomiting, Fevers/Chills, SOB/Chest pain Objective - Vital Signs/Intake and Output Vital Signs (last 24 hours): Temp Pulse Resp BP Pulse Ox 98.6 F 88 20 101/63 90 L 10/03/17 08:03 10/03/17 08:03 10/03/17 08:03 10/03/17 08:03 10/03/17 08:03 Intake and Output: 10/03/17 10/03/17 06:59 18:59 Output Total 10 Balance -10 - Medications Medications: Current Medications Acetaminophen (Tylenol 325mg Tab) 650 mg PO Q4 PRN PRN Reason: Pain, Mild (1-3) Calcium Carbonate (Oscal) 500 mg PO BIDWM [facility] Hydromorphone HCl (Dilaudid) 0.5 mg IVP Q3H PRN PRN Reason: Pain, moderate (4-7) Last Admin: 10/03/17 05:49 Dose: 0.5 mg Dextrose/Sodium Chloride (Dextrose 5%-0.9% Ns 500 Ml) 1,000 mls @ 100 mls/hr IV .Q10H [facility] Last Admin: 10/03/17 01:42 Dose: Not Given Ciprofloxacin (Cipro 400mg/200ml Dsw) 400 mg in 200 mls @ 200 mls/hr IVPB Q12 [facility] PRN Reason: Protocol Last Admin: 10/02/17 21:14 Dose: 200 mls/hr Metronidazole (Flagyl 500mg/100ml Ns) 100 mls @ 100 mls/hr IVPB Q8 [facility] PRN Reason: Protocol Last Admin: 10/03/17 00:53 Dose: 100 mls/hr Potassium Phosphate 30 mmole/ (Dextrose) 510 mls @ 84 mls/hr IV .Q6H5M ONE Stop: 10/03/17 14:34 Potassium Phos/Sodium Phos (Neutra-Phos) 1 pkt PO BID [facility] - Labs Labs: 10/03/17 05:20 10/03/17 05:20 PT 11.9 Seconds (9.8-13.1) 09/30/17 20:41 INR 1.1 09/30/17 20:41 APTT 30.7 Seconds (25.6-37.1) 09/30/17 20:41 - Constitutional Appears: No Acute Distress - Head Exam Head Exam: ATRAUMATIC, NORMAL INSPECTION, NORMOCEPHALIC - Eye Exam Eye Exam: Normal appearance - Respiratory Exam Respiratory Exam: NORMAL BREATHING PATTERN. absent: Respiratory Distress - Cardiovascular Exam Cardiovascular Exam: REGULAR RHYTHM - GI/Abdominal Exam GI & Abdominal Exam: Soft, Tenderness (appropriate post op tenderness). absent : Distended, Firm, Guarding, Rigid, Rebound - Neurological Exam Neurological Exam: Alert, Oriented x3 - Psychiatric Exam Psychiatric exam: Normal Affect, Normal Mood - Skin Skin Exam: Dry, Intact Assessment and Plan - Assessment and Plan (Free Text) Assessment: 57 yo F POD #1 s/p Lap cholecystectomy -Tbili elevated this AM, will make NPO and stat MRCP ordered, will F/U -Replace electrolytes -Pain control PRN -Encourage OOB/Ambulation Dw Dr Chapincito Del Rosario PGY4 <Luis Beckham - Last Filed: 10/03/17 18:52> Objective - Vital Signs/Intake and Output Vital Signs (last 24 hours): Temp Pulse Resp BP Pulse Ox 98.6 F 88 20 101/63 90 L 10/03/17 08:03 10/03/17 08:03 10/03/17 08:03 10/03/17 08:03 10/03/17 08:03 Intake and Output: 10/03/17 10/03/17 06:59 18:59 Output Total 10 Balance -10 - Medications Medications: Current Medications Acetaminophen (Tylenol 325mg Tab) 650 mg PO Q4 PRN PRN Reason: Pain, Mild (1-3) Calcium Carbonate (Oscal) 500 mg PO BIDWM [facility] Last Admin: 10/03/17 17:53 Dose: Not Given Hydromorphone HCl (Dilaudid) 0.5 mg IVP Q3H PRN PRN Reason: Pain, moderate (4-7) Last Admin: 10/03/17 18:46 Dose: 0.5 mg Dextrose/Sodium Chloride (Dextrose 5%-0.9% Ns 500 Ml) 1,000 mls @ 100 mls/hr IV .Q10H [facility] Last Admin: 10/03/17 10:02 Dose: 100 mls/hr Ciprofloxacin (Cipro 400mg/200ml Dsw) 400 mg in 200 mls @ 200 mls/hr IVPB Q12 [facility] PRN Reason: Protocol Last Admin: 10/03/17 11:05 Dose: 200 mls/hr Metronidazole (Flagyl 500mg/100ml Ns) 100 mls @ 100 mls/hr IVPB Q8 [facility] PRN Reason: Protocol Last Admin: 10/03/17 10:02 Dose: 100 mls/hr Potassium Phos/Sodium Phos (Neutra-Phos) 1 pkt PO BID [facility] Last Admin: 10/03/17 14:43 Dose: 1 pkt - Labs Labs: 10/03/17 05:20 10/03/17 05:20 PT 11.9 Seconds (9.8-13.1) 09/30/17 20:41 INR 1.1 09/30/17 20:41 APTT 30.7 Seconds (25.6-37.1) 09/30/17 20:41 Assessment and Plan - Assessment and Plan (Free Text) Plan: mrcp shows dilated cbd, no stones in cbd. poss bile leak, will get hida. monitor lfts.
[2017-10-03] MEDS: Potassium & Sodium Phosphate PO SCH ×3 (10:00→19:36)
[2017-10-03] MEDS: Ciprofloxacin 400mg/200ml D5W 400 MG/200 ML BAG IVPB SCH (11:05)
--- NOTE | 2017-10-03 14:42 | MRI ---
Date of service: 10/03/2017 PROCEDURE: Magnetic Resonance Cholangiopancreatography HISTORY: COMPARISON: Limited abdomen ultrasound 09/30/2017. TECHNIQUE: Multiplanar, multisequence MR images of the abdomen were obtained, including heavily T2 weighted MRCP images of the biliary system. Rotating maximum intensity projection images of the biliary system were generated. FINDINGS: MRCP: Common bile duct appears normal distally measuring approximate 5.5 mm but is dilated at the proximal segment up to 10 mm and up to 11 mm at the mid segment. No choledocholithiasis identified. The common hepatic duct appears normal caliber and there is no significant intrahepatic biliary dilatation appreciated at this time. Patient status postcholecystectomy with a fluid collection occupying the gallbladder fossa extending into the posterior inferior right upper quadrant relative to the right lobe liver measuring at least 6.7 x 4.4 cm suggestive of a biloma. Fluid is also identified extending into the perihepatic and para renal spaces well as the right pericolic gutter in a pattern suspicious for bile leak. Consider follow-up nuclear hepatobiliary scan to confirm. The differential diagnosis would be seroma or even hematoma. LIVER: Other than perihepatic ascites/ bile intrinsic liver signal intensity is unremarkable. GALLBLADDER: Prior cholecystectomy. SPLEEN: Unremarkable. PANCREAS: Unremarkable. ADRENALS: Unremarkable. KIDNEYS: Unremarkable. AORTA: No aneurysm identified. ASCITES: Please see MRCP section above. OTHER FINDINGS: None. IMPRESSION: Prior cholecystectomy with prominent proximal and mid common bile duct segment dilatation up to 11 mm but normal distal common bile duct. No choledocholithiasis identified. Fluid collection beginning at the gallbladder fossa extending into right upper quadrant posterior to the right lobe liver is suspicious for biloma. Fluid in the right pericolic and para renal spaces suggests the same. Consider follow-up nuclear pattern greater scan for additional characterization. No significant intrahepatic biliary dilatation. Findings discussed with Dr. Del Rosario with written down read back verification 10/03/2017 2:35 p.m. .
--- NOTE | 2017-10-03 17:07 | CP.PCM.PN ---
Subjective - Date & Time of Evaluation Date of Evaluation: 10/03/17 Time of Evaluation: 17:02 Objective - Vital Signs/Intake and Output Vital Signs (last 24 hours): Temp Pulse Resp BP Pulse Ox 98.6 F 88 20 101/63 90 L 10/03/17 08:03 10/03/17 08:03 10/03/17 08:03 10/03/17 08:03 10/03/17 08:03 Intake and Output: 10/03/17 10/03/17 06:59 18:59 Output Total 10 Balance -10 - Medications Medications: Current Medications Acetaminophen (Tylenol 325mg Tab) 650 mg PO Q4 PRN PRN Reason: Pain, Mild (1-3) Calcium Carbonate (Oscal) 500 mg PO BIDWM [facility] Last Admin: 10/03/17 10:00 Dose: Not Given Hydromorphone HCl (Dilaudid) 0.5 mg IVP Q3H PRN PRN Reason: Pain, moderate (4-7) Last Admin: 10/03/17 12:10 Dose: 0.5 mg Dextrose/Sodium Chloride (Dextrose 5%-0.9% Ns 500 Ml) 1,000 mls @ 100 mls/hr IV .Q10H [facility] Last Admin: 10/03/17 10:02 Dose: 100 mls/hr Ciprofloxacin (Cipro 400mg/200ml Dsw) 400 mg in 200 mls @ 200 mls/hr IVPB Q12 [facility] PRN Reason: Protocol Last Admin: 10/03/17 11:05 Dose: 200 mls/hr Metronidazole (Flagyl 500mg/100ml Ns) 100 mls @ 100 mls/hr IVPB Q8 [facility] PRN Reason: Protocol Last Admin: 10/03/17 10:02 Dose: 100 mls/hr Potassium Phos/Sodium Phos (Neutra-Phos) 1 pkt PO BID [facility] Last Admin: 10/03/17 14:43 Dose: 1 pkt - Labs Labs: 10/03/17 05:20 10/03/17 05:20 PT 11.9 Seconds (9.8-13.1) 09/30/17 20:41 INR 1.1 09/30/17 20:41 APTT 30.7 Seconds (25.6-37.1) 09/30/17 20:41 - Constitutional Appears: No Acute Distress, Chronically Ill - Head Exam Head Exam: ATRAUMATIC - GI/Abdominal Exam GI & Abdominal Exam: Soft, Normal Bowel Sounds. absent: Tenderness - Extremities Exam Extremities Exam: Normal Inspection - Back Exam Back Exam: NORMAL INSPECTION - Neurological Exam Neurological Exam: Alert, Awake, Normal Gait - Psychiatric Exam Psychiatric exam: Normal Affect, Normal Mood - Skin Skin Exam: Dry, Intact
--- NOTE | 2017-10-03 18:12 | OP ---
Copied To: Luis Beckham MD Attending MD: Luis Beckham MD PROCEDURE DATE: 10/02/2017 OPERATION PERFORMED: Laparoscopic cholecystectomy. SURGEON: Luis Beckham MD OPERATIONS SUPPORT SPECIALIST: Juli Del Rosario DO ANESTHESIA: General anesthesia. PREOPERATIVE DIAGNOSIS: Cholecystitis. POSTOPERATIVE DIAGNOSIS: Cholecystitis. ESTIMATED BLOOD LOSS: 20 mL. OPERATIVE FINDINGS: Cystic duct and cystic artery identified, critical view obtained. Acute cholecystitis of the gall bladder. DESCRIPTION OF PROCEDURE: The operative proceedings are as follows: Patient was taken to the operating room and placed supine on the operating room table. After induction of general anesthesia, the abdomen was prepped and draped in a standard surgical fashion. A Veress needle was placed through the umbilicus. The abdomen was insufflated and an 11-mm trocar was placed in the umbilicus. Diagnostic laparoscopy was performed. The patient then had subxiphoid trocar placed under direct vision as well as two right-sided trocars. Patient was placed in the reverse Trendelenburg and left side down position. The gallbladder was inflamed with some omentum attached to it. The omentum was peeled off the gallbladder and a Veress needle was then inserted into the gallbladder and the gallbladder was decompressed. The gallbladder was then grasped and pulled upwards. The neck of the gallbladder was pulled outwards and the gallbladder was freed up to expose the triangle of Calot. Once the triangle was exposed, a combination of blunt dissection and traction was used to free up the contents of the triangle of Calot. The cystic duct was identified as well as the cystic artery. The cystic duct was then triply clipped and divided. The cystic artery was then quickly divided in a similar fashion. The patient then had the electrocautery used to take the gallbladder off the gallbladder fossa. Once that was done, the area was inspected for hemostasis. There was no evidence of bleeding. The patient had the gallbladder placed into an EndoCatch bag. The right upper quadrant was copiously irrigated and the irrigant was removed. The EndoCatch bag was removed via the umbilical trocar site. The umbilical trocar site was closed using 0 Vicryl. The skin incisions were closed using 4-0 Monocryl. Patient had 10 mL of 0.25% Marcaine infiltrated into the wounds. She was awakened from anesthesia, transported to recovery in satisfactory condition. Sponge, instrument, and needle counts were correct at the end of the case. Luis Beckham MD
[2017-10-03 21:16] LABS: ALT/SGPT 81 U/L (9-52); AST/SGOT 69 U/L (14-36); BLOOD UREA NITROGEN 10 mg/dl (7-17); CALCIUM 7.9 mg/dL (8.4-10.2); GFR AFRICAN-AMERICAN > 60; GFR NON-AFRICAN AMERICAN > 60
[2017-10-04] MEDS: Ciprofloxacin 400mg/200ml D5W 400 MG/200 ML BAG IVPB SCH ×3 (00:20→21:26)
[2017-10-04] MEDS: metroNIDAZOLE 500mg/100ml NS 100 ML IVPB SCH ×3 (01:02→16:05)
[2017-10-04] MEDS: HYDROmorphone 1 mg/ml ISec IVP PRN (06:19)
[2017-10-04 07:12] LABS: ALB/GLOB RATIO 0.9 (1.0-2.1); ALBUMIN 2.9 g/dL (3.5-5.0); BILIRUBIN,DIRECT 1.2 mg/ml (0.0-0.4); CALCIUM 8.1 mg/dL (8.4-10.2)
--- NOTE | 2017-10-04 08:22 | CP.PCM.PN ---
<Karissa Martinez - Last Filed: 10/04/17 08:19> Subjective - Date & Time of Evaluation Date of Evaluation: 10/04/17 Time of Evaluation: 08:20 - Subjective Subjective: General surgery progress note for Dr. Lorelei Martinez, PGY-2 Pt S & E at bedside at 0720 Pt reports ab pain resolved. Voiding. Tolerating liquids. OOBTC. Woud like to get out of bed and walk. Denies F & C, other complaints. Objective - Vital Signs/Intake and Output Vital Signs (last 24 hours): Temp Pulse Resp BP Pulse Ox 99.6 F 89 20 114/64 95 10/04/17 01:09 10/04/17 01:09 10/04/17 01:09 10/04/17 01:09 10/04/17 01:09 - Medications Medications: Current Medications Acetaminophen (Tylenol 325mg Tab) 650 mg PO Q4 PRN PRN Reason: Pain, Mild (1-3) Calcium Carbonate (Oscal) 500 mg PO BIDWM [facility] Last Admin: 10/03/17 17:53 Dose: Not Given Hydromorphone HCl (Dilaudid) 0.5 mg IVP Q3H PRN PRN Reason: Pain, moderate (4-7) Last Admin: 10/04/17 06:19 Dose: 0.5 mg Dextrose/Sodium Chloride (Dextrose 5%-0.9% Ns 500 Ml) 1,000 mls @ 100 mls/hr IV .Q10H [facility] Last Admin: 10/03/17 10:02 Dose: 100 mls/hr Ciprofloxacin (Cipro 400mg/200ml Dsw) 400 mg in 200 mls @ 200 mls/hr IVPB Q12 [facility] PRN Reason: Protocol Last Admin: 10/04/17 00:20 Dose: 200 mls/hr Metronidazole (Flagyl 500mg/100ml Ns) 100 mls @ 100 mls/hr IVPB Q8 [facility] PRN Reason: Protocol Last Admin: 10/04/17 01:02 Dose: 100 mls/hr Potassium Phos/Sodium Phos (Neutra-Phos) 1 pkt PO BID [facility] Last Admin: 10/03/17 19:36 Dose: Not Given Sodium Phosphate (Potassium/Sodium Phosphate) 500 mg PO ONCE ONE Stop: 08/10/18 09:01 - Labs Labs: 10/03/17 05:20 10/03/17 20:20 PT 11.9 Seconds (9.8-13.1) 09/30/17 20:41 INR 1.1 09/30/17 20:41 APTT 30.7 Seconds (25.6-37.1) 09/30/17 20:41 - Constitutional Appears: Non-toxic, No Acute Distress - Head Exam Head Exam: ATRAUMATIC, NORMAL INSPECTION, NORMOCEPHALIC - Eye Exam Eye Exam: EOMI, Normal appearance - ENT Exam ENT Exam: Mucous Membranes Moist, Normal Exam - Neck Exam Neck Exam: Full ROM, Normal Inspection - Respiratory Exam Respiratory Exam: Clear to Ausculation Bilateral, NORMAL BREATHING PATTERN - Cardiovascular Exam Cardiovascular Exam: REGULAR RHYTHM, +S1, +S2 - GI/Abdominal Exam GI & Abdominal Exam: Soft, Tenderness (over incision sites). absent: Distended , Firm, Guarding - Extremities Exam Extremities Exam: Normal Inspection - Neurological Exam Neurological Exam: Alert, Awake, CN II-XII Intact, Oriented x3 - Psychiatric Exam Psychiatric exam: Normal Affect, Normal Mood - Skin Skin Exam: Dry, Intact, Normal Color, Warm Additional comments: Glue in place over surgical incisions abdominal sites, some ecchymoses, no erythema, induration or fluctuance Assessment and Plan - Assessment and Plan (Free Text) Assessment: 57F POD#2 s/p lap cholecystectomy MRCP with fluid collection at GB fossa into posterior RUQ - possible biloma, no choledocholithiasis or biliary dilatation. HIDA scan with contrast from liver to duodenum, no extravasation Plan: Advanced to Reg diet T bili 1.9 from 2.6 Replace electrolytes PRN Pain control PRN OOBTC Ambulate Encourage IS use Will DW attending Michelle, PGY-2 <Frank Cha - Last Filed: 10/04/17 13:57> Subjective - Date & Time of Evaluation Time of Evaluation: 13:30 - Subjective Subjective: Patient was seen and examined at the bedside. Agree with resident's note above. Objective - Vital Signs/Intake and Output Vital Signs (last 24 hours): Temp Pulse Resp BP Pulse Ox 98.5 F 78 20 109/61 94 L 10/04/17 08:37 10/04/17 08:37 10/04/17 08:37 10/04/17 08:37 10/04/17 08:37 - Medications Medications: Current Medications Acetaminophen (Tylenol 325mg Tab) 650 mg PO Q4 PRN PRN Reason: Pain, Mild (1-3) Calcium Carbonate (Oscal) 500 mg PO BIDWM [facility] Last Admin: 10/04/17 10:09 Dose: 500 mg Dextrose/Sodium Chloride (Dextrose 5%-0.9% Ns 500 Ml) 1,000 mls @ 100 mls/hr IV .Q10H [facility] Last Admin: 10/03/17 10:02 Dose: 100 mls/hr Ciprofloxacin (Cipro 400mg/200ml Dsw) 400 mg in 200 mls @ 200 mls/hr IVPB Q12 [facility] PRN Reason: Protocol Last Admin: 10/04/17 11:58 Dose: 200 mls/hr Metronidazole (Flagyl 500mg/100ml Ns) 100 mls @ 100 mls/hr IVPB Q8 [facility] PRN Reason: Protocol Last Admin: 10/04/17 10:09 Dose: 100 mls/hr Ondansetron HCl (Zofran Inj) 4 mg IVP Q6 PRN PRN Reason: Nausea/Vomiting Oxycodone/Acetaminophen (Percocet 5/325 Mg Tab) 1 tab PO Q4 PRN PRN Reason: Pain, moderate (4-7) Stop: 10/07/17 08:24 Last Admin: 10/04/17 10:12 Dose: 1 tab Pantoprazole Sodium (Protonix Ec Tab) 40 mg PO DAILY [facility] Last Admin: 10/04/17 11:58 Dose: 40 mg Potassium Phos/Sodium Phos (Neutra-Phos) 1 pkt PO BID [facility] Last Admin: 10/04/17 10:09 Dose: 1 pkt - Labs Labs: 10/03/17 05:20 10/03/17 20:20 PT 11.9 Seconds (9.8-13.1) 09/30/17 20:41 INR 1.1 09/30/17 20:41 APTT 30.7 Seconds (25.6-37.1) 09/30/17 20:41 - GI/Abdominal Exam Additional comments: soft, anali-incisional tenderness, mildly distended, BS+, no rebound, no guarding , incisoons clean, no erythema, no drainage, dermobond in place Assessment and Plan - Assessment and Plan (Free Text) Plan: - repeat labs in am - Continue antibiotics - Will follow - DVT ppx
[2017-10-04] MEDS ORDERED: Oxycodone/Acetaminophen 5/325 mg Tab PO PRN (08:23)
[2017-10-04] MEDS: Potassium & Sodium Phosphate PO SCH ×2 (10:09→16:06)
--- NOTE | 2017-10-04 10:12 | NM ---
Date of service: 10/03/2017 PROCEDURE: Nuclear Medicine Hepatobiliary Scan HISTORY: r/o bile leak COMPARISON: October 03, 2017. MRCP. Summary of findings on the comparison examination: Prior cholecystectomy with prominent proximal and mid common bile duct segment dilatation up to 11 mm. TECHNIQUE: 5.4 mCi of technetium 99m Mebrofenin was administered intravenously. Planar images of the abdomen were obtained at 5 min intervals to 60 mins. Delayed images were also obtained. FINDINGS: LIVER: Timely and homogenous uptake. COMMON BILE DUCT: identified at 20 mins. Status post cholecystectomy: No abnormal accumulation in the gallbladder fossa. . SMALL BOWEL: Identified at 45 mins. IMPRESSION: Status post cholecystectomy. No scintigraphic evidence of bile leak. Concordant results (preliminary interpretation) provided by [employer]. Procedure Completed: 19:06. Preliminary ([facility]) Report: Dictated and Authenticated: 19:30. Final Interpretation: 10:11. October 04, 2017.
[2017-10-04] MEDS: Pantoprazole 40 mg EC Tab PO SCH (11:58)
--- NOTE | 2017-10-04 12:14 | CP.PCM.PN ---
Subjective - Date & Time of Evaluation Date of Evaluation: 10/04/17 Time of Evaluation: 12:14 - Subjective Subjective: STILL HAVING FEVER AND ABDOMINAL PAINS TOLERATING DIET C/O NAUSEA Objective - Vital Signs/Intake and Output Vital Signs (last 24 hours): Temp Pulse Resp BP Pulse Ox 98.5 F 78 20 109/61 94 L 10/04/17 08:37 10/04/17 08:37 10/04/17 08:37 10/04/17 08:37 10/04/17 08:37 - Medications Medications: Current Medications Acetaminophen (Tylenol 325mg Tab) 650 mg PO Q4 PRN PRN Reason: Pain, Mild (1-3) Calcium Carbonate (Oscal) 500 mg PO BIDWM [facility] Last Admin: 10/04/17 10:09 Dose: 500 mg Dextrose/Sodium Chloride (Dextrose 5%-0.9% Ns 500 Ml) 1,000 mls @ 100 mls/hr IV .Q10H [facility] Last Admin: 10/03/17 10:02 Dose: 100 mls/hr Ciprofloxacin (Cipro 400mg/200ml Dsw) 400 mg in 200 mls @ 200 mls/hr IVPB Q12 [facility] PRN Reason: Protocol Last Admin: 10/04/17 11:58 Dose: 200 mls/hr Metronidazole (Flagyl 500mg/100ml Ns) 100 mls @ 100 mls/hr IVPB Q8 [facility] PRN Reason: Protocol Last Admin: 10/04/17 10:09 Dose: 100 mls/hr Oxycodone/Acetaminophen (Percocet 5/325 Mg Tab) 1 tab PO Q4 PRN PRN Reason: Pain, moderate (4-7) Stop: 10/07/17 08:24 Last Admin: 10/04/17 10:12 Dose: 1 tab Pantoprazole Sodium (Protonix Ec Tab) 40 mg PO DAILY [facility] Last Admin: 10/04/17 11:58 Dose: 40 mg Potassium Phos/Sodium Phos (Neutra-Phos) 1 pkt PO BID [facility] Last Admin: 10/04/17 10:09 Dose: 1 pkt - Labs Labs: 10/03/17 05:20 10/03/17 20:20 PT 11.9 Seconds (9.8-13.1) 09/30/17 20:41 INR 1.1 09/30/17 20:41 APTT 30.7 Seconds (25.6-37.1) 09/30/17 20:41 - Constitutional Appears: In Acute Distress - Head Exam Head Exam: ATRAUMATIC, NORMAL INSPECTION, NORMOCEPHALIC - Eye Exam Eye Exam: EOMI, Normal appearance, PERRL Pupil Exam: NORMAL ACCOMODATION, PERRL - ENT Exam ENT Exam: Mucous Membranes Moist, Normal Exam - Neck Exam Neck Exam: Full ROM, Normal Inspection. absent: Lymphadenopathy - Respiratory Exam Respiratory Exam: Clear to Ausculation Bilateral, NORMAL BREATHING PATTERN - Cardiovascular Exam Cardiovascular Exam: REGULAR RHYTHM, +S1, +S2. absent: Murmur - GI/Abdominal Exam GI & Abdominal Exam: Soft, Tenderness, Normal Bowel Sounds - Rectal Exam Rectal Exam: NORMAL INSPECTION - Extremities Exam Extremities Exam: Full ROM, Normal Capillary Refill, Normal Inspection. absent : Joint Swelling, Pedal Edema - Back Exam Back Exam: NORMAL INSPECTION - Neurological Exam Neurological Exam: Alert, Awake, CN II-XII Intact, Normal Gait, Oriented x3 - Psychiatric Exam Psychiatric exam: Normal Affect, Normal Mood - Skin Skin Exam: Dry, Intact, Normal Color, Warm Assessment and Plan - Assessment and Plan (Free Text) Assessment: S/P CHOLECYSTECTOMY [id number] IMBALANCE FEVER ?GALLBLADDER LEAK Plan: CONTINUE IV ANTIBIOTICS X 24 MORE HRS BEFORE PLANNING D/C HOME
[2017-10-04] MEDS ORDERED: Simethicone 80 mg Chewtab PO PRN (21:26)
[2017-10-05] MEDS: metroNIDAZOLE 500mg/100ml NS 100 ML IVPB SCH ×3 (00:13→16:28)
[2017-10-05 00:40] VITALS: RESP 18
[2017-10-05 07:18] LABS: BASO % 0.1 % (0.0-2.0); EOS % 0.5 % (0.0-4.0); HEMOGLOBIN 12.3 g/dL (12.0-16.0); LYMPH # 1.4 K/uL (1.0-4.3); LYMPH % 15.1 % (20.0-40.0); MEAN CELL VOLUME 89.4 fl (81.0-99.0); MEAN CORPUSCULAR HEMOGLOBIN 30.6 pg (27.0-31.0); MEAN CORPUSCULAR HGB CONC 34.3 g/dL (33.0-37.0); MONO # 0.6 K/uL (0.0-0.8); MONO % 6.6 % (0.0-10.0); NEUT % 77.7 % (50.0-75.0); RBC 4.01 Mil/uL (3.80-5.20); RED CELL DISTRIBUTION WIDTH 14.2 % (11.5-14.5)
[2017-10-05 07:34] LABS: ALB/GLOB RATIO 0.9 (1.0-2.1); ALT/SGPT 51 U/L (9-52); AST/SGOT 27 U/L (14-36); BLOOD UREA NITROGEN 7 mg/dl (7-17); CALCIUM 8.7 mg/dL (8.4-10.2); GFR AFRICAN-AMERICAN > 60; GFR NON-AFRICAN AMERICAN > 60
[2017-10-05] MEDS ORDERED: Potassium Phosphate 30 MMOLE in Dextrose 5% In Water 250 ML IV STA (07:50)
--- NOTE | 2017-10-05 07:56 | CP.PCM.PN ---
<Kirsten Mensah - Last Filed: 10/05/17 08:11> Subjective - Date & Time of Evaluation Date of Evaluation: 10/05/17 Time of Evaluation: 07:30 - Subjective Subjective: General Surgery Dr. Cha Pt S&E @bedside. NAEO. pt c/o abd pain, controlled w/ meds. pt reports decreased appetite though tolerating diet. denies F/C, N/V. (+)flatus. OOB w/ PT yesterday. Objective - Vital Signs/Intake and Output Vital Signs (last 24 hours): Temp Pulse Resp BP Pulse Ox 98.9 F 72 18 119/69 95 10/05/17 00:39 10/05/17 00:39 10/05/17 00:39 10/05/17 00:39 10/05/17 00:39 - Medications Medications: Current Medications Acetaminophen (Tylenol 325mg Tab) 650 mg PO Q4 PRN PRN Reason: Pain, Mild (1-3) Calcium Carbonate (Oscal) 500 mg PO BIDWM [facility] Last Admin: 10/04/17 16:06 Dose: 500 mg Dextrose/Sodium Chloride (Dextrose 5%-0.9% Ns 500 Ml) 1,000 mls @ 100 mls/hr IV .Q10H [facility] Last Admin: 10/04/17 18:35 Dose: Not Given Ciprofloxacin (Cipro 400mg/200ml Dsw) 400 mg in 200 mls @ 200 mls/hr IVPB Q12 [facility] PRN Reason: Protocol Last Admin: 10/04/17 21:26 Dose: 200 mls/hr Metronidazole (Flagyl 500mg/100ml Ns) 100 mls @ 100 mls/hr IVPB Q8 [facility] PRN Reason: Protocol Last Admin: 10/05/17 00:13 Dose: 100 mls/hr Potassium Phosphate 30 mmole/ (Dextrose) 260 mls @ 84 mls/hr IV .Q3H6M [facility] Stop: 10/05/17 10:55 Ondansetron HCl (Zofran Inj) 4 mg IVP Q6 PRN PRN Reason: Nausea/Vomiting Oxycodone/Acetaminophen (Percocet 5/325 Mg Tab) 1 tab PO Q4 PRN PRN Reason: Pain, moderate (4-7) Stop: 10/07/17 08:24 Last Admin: 10/04/17 10:12 Dose: 1 tab Pantoprazole Sodium (Protonix Ec Tab) 40 mg PO DAILY [facility] Last Admin: 10/04/17 11:58 Dose: 40 mg Potassium Phos/Sodium Phos (Neutra-Phos) 1 pkt PO BID [facility] Last Admin: 10/04/17 16:06 Dose: 1 pkt Simethicone (Mylicon Chew Tab) 80 mg PO TID PRN PRN Reason: Flatulence Last Admin: 10/04/17 21:32 Dose: 80 mg - Labs Labs: 10/05/17 05:30 10/05/17 05:30 PT 11.9 Seconds (9.8-13.1) 09/30/17 20:41 INR 1.1 09/30/17 20:41 APTT 30.7 Seconds (25.6-37.1) 09/30/17 20:41 - Constitutional Appears: Non-toxic, No Acute Distress - Head Exam Head Exam: NORMAL INSPECTION - Eye Exam Eye Exam: Normal appearance - ENT Exam ENT Exam: Mucous Membranes Moist - Respiratory Exam Respiratory Exam: NORMAL BREATHING PATTERN. absent: Accessory Muscle Use, Respiratory Distress - Cardiovascular Exam Cardiovascular Exam: REGULAR RHYTHM. absent: Bradycardia, Tachycardia - GI/Abdominal Exam GI & Abdominal Exam: Distended (mild), Soft, Tenderness (TTP RUQ). absent: Firm , Guarding, Rigid, Rebound Additional comments: incisions c/d/i - Extremities Exam Extremities Exam: Normal Inspection - Neurological Exam Neurological Exam: Alert, Awake, Oriented x3 - Psychiatric Exam Psychiatric exam: Normal Affect, Normal Mood - Skin Skin Exam: Dry, Intact, Normal Color, Warm Assessment and Plan - Assessment and Plan (Free Text) Assessment: 57 y/o F POD#3 s/p lap cholecystectomy - ADAT - cont PO pain management - monitor vitals - electrolytes repleted - encourage OOB to chair/Amb/IS use - OOB to chair w/ all meals Pt discussed w/ Dr. Starla Mensah DO PGY3. <Frank Cha - Last Filed: 10/05/17 15:52> Subjective - Date & Time of Evaluation Time of Evaluation: 15:20 - Subjective Subjective: Patient was seen and examined at the bedside. Agree with resident's note above. Objective - Vital Signs/Intake and Output Vital Signs (last 24 hours): Temp Pulse Resp BP Pulse Ox 98.3 F 66 18 116/65 95 10/05/17 08:29 10/05/17 08:29 10/05/17 08:29 10/05/17 08:29 10/05/17 08:29 - Medications Medications: Current Medications Acetaminophen (Tylenol 325mg Tab) 650 mg PO Q4 PRN PRN Reason: Pain, Mild (1-3) Calcium Carbonate (Oscal) 500 mg PO BIDWM [facility] Last Admin: 10/05/17 09:04 Dose: 500 mg Dextrose/Sodium Chloride (Dextrose 5%-0.9% Ns 500 Ml) 1,000 mls @ 100 mls/hr IV .Q10H [facility] Last Admin: 10/05/17 09:03 Dose: 100 mls/hr Ciprofloxacin (Cipro 400mg/200ml Dsw) 400 mg in 200 mls @ 200 mls/hr IVPB Q12 [facility] PRN Reason: Protocol Last Admin: 10/05/17 10:51 Dose: 200 mls/hr Metronidazole (Flagyl 500mg/100ml Ns) 100 mls @ 100 mls/hr IVPB Q8 [facility] PRN Reason: Protocol Last Admin: 10/05/17 09:03 Dose: 100 mls/hr Ondansetron HCl (Zofran Inj) 4 mg IVP Q6 PRN PRN Reason: Nausea/Vomiting Oxycodone HCl (Oxycodone Immediate Release Tab) 5 mg PO Q4 PRN PRN Reason: Pain, moderate (4-7) Oxycodone HCl (Oxycodone Immediate Release Tab) 10 mg PO Q4 PRN PRN Reason: Pain, severe (8-10) Last Admin: 10/05/17 09:09 Dose: 10 mg Pantoprazole Sodium (Protonix Ec Tab) 40 mg PO DAILY [facility] Last Admin: 10/05/17 09:04 Dose: 40 mg Potassium Phos/Sodium Phos (Neutra-Phos) 1 pkt PO BID [facility] Last Admin: 10/05/17 09:04 Dose: 1 pkt Simethicone (Mylicon Chew Tab) 80 mg PO TID PRN PRN Reason: Flatulence Last Admin: 10/04/17 21:32 Dose: 80 mg - Labs Labs: 10/05/17 05:30 10/05/17 05:30 PT 11.9 Seconds (9.8-13.1) 09/30/17 20:41 INR 1.1 09/30/17 20:41 APTT 30.7 Seconds (25.6-37.1) 09/30/17 20:41 Assessment and Plan - Assessment and Plan (Free Text) Plan: - Clear for discharge home from general surgery stand point - Patient will follow up with Dr. Beckham in the office in 10 days to 2 weeks for post-op visit
[2017-10-05] MEDS ORDERED: oxyCODONE 5 mg Immediate Release Tab PO PRN (08:07)
[2017-10-05] MEDS ORDERED: oxyCODONE 10 mg Immediate Release Tab PO PRN (08:07)
[2017-10-05 08:29] VITALS: TEMP 98.3
[2017-10-05] MEDS: Pantoprazole 40 mg EC Tab PO SCH (09:04)
[2017-10-05] MEDS: Potassium & Sodium Phosphate PO SCH ×2 (09:04→16:28)
[2017-10-05] MEDS: Ciprofloxacin 400mg/200ml D5W 400 MG/200 ML BAG IVPB SCH (10:51)
--- NOTE | 2017-10-05 11:18 | CP.PCM.DIS ---
Provider - Provider Date of Admission: 09/30/17 22:33 Attending physician: Brad Haywood MD Time Spent in preparation of Discharge (in minutes): 30 Diagnosis - Discharge Diagnosis (1) Cholecystitis Status: Acute (2) Leukocytosis Status: Acute (3) Hypokalemia Status: Acute Hospital Course - Lab Results Lab Results: Micro Results 09/30/17 20:56 Blood Blood Culture - Preliminary NO GROWTH AFTER 4 DAYS 09/30/17 20:20 Blood Blood Culture - Preliminary NO GROWTH AFTER 4 DAYS Most Recent Lab Values WBC 9.0 K/uL (4.8-10.8) 10/05/17 05:30 RBC 4.01 Mil/uL (3.80-5.20) 10/05/17 05:30 Hgb 12.3 g/dL (12.0-16.0) 10/05/17 05:30 Hct 35.9 % (34.0-47.0) 10/05/17 05:30 MCV 89.4 fl (81.0-99.0) 10/05/17 05:30 MCH 30.6 pg (27.0-31.0) 10/05/17 05:30 MCHC 34.3 g/dL (33.0-37.0) 10/05/17 05:30 RDW 14.2 % (11.5-14.5) 10/05/17 05:30 Plt Count 254 K/uL (130-400) 10/05/17 05:30 MPV 8.0 fl (7.2-11.7) 10/05/17 05:30 Neut % (Auto) 77.7 % (50.0-75.0) H 10/05/17 05:30 Lymph % (Auto) 15.1 % (20.0-40.0) L 10/05/17 05:30 Banner % (Auto) 6.6 % (0.0-10.0) 10/05/17 05:30 Eos % (Auto) 0.5 % (0.0-4.0) 10/05/17 05:30 Baso % (Auto) 0.1 % (0.0-2.0) 10/05/17 05:30 Neut # (Auto) 7.0 K/uL (1.8-7.0) 10/05/17 05:30 Lymph # (Auto) 1.4 K/uL (1.0-4.3) 10/05/17 05:30 Banner # (Auto) 0.6 K/uL (0.0-0.8) 10/05/17 05:30 Eos # (Auto) 0.0 K/uL (0.0-0.7) 10/05/17 05:30 Baso # (Auto) 0.0 K/uL (0.0-0.2) 10/05/17 05:30 Neutrophils % (Manual) 94 % (42-75) H 09/30/17 20:41 Lymphocytes % (Manual) 6 % (20-50) L 09/30/17 20:41 Monocytes % (Manual) TEST NOT PERFORMED 09/30/17 20:41 Platelet Estimate Normal (NORMAL) 09/30/17 20:41 PT 11.9 Seconds (9.8-13.1) 09/30/17 20:41 INR 1.1 09/30/17 20:41 APTT 30.7 Seconds (25.6-37.1) 09/30/17 20:41 Sodium 140 mmol/l (132-148) 10/05/17 05:30 Potassium 3.4 MMOL/L (3.6-5.0) L 10/05/17 05:30 Chloride 106 mmol/L (98-107) 10/05/17 05:30 Carbon Dioxide 24 mmol/L (22-30) 10/05/17 05:30 Anion Gap 13 (10-20) 10/05/17 05:30 BUN 7 mg/dl (7-17) 10/05/17 05:30 Creatinine 0.6 mg/dl (0.7-1.2) L 10/05/17 05:30 Est GFR ( Amer) > 60 10/05/17 05:30 Est GFR (Non-Af Amer) > 60 10/05/17 05:30 Random Glucose 133 mg/dL (65-105) H 10/05/17 05:30 Lactic Acid 1.1 MMOL/L (0.7-2.1) 09/30/17 20:41 Calcium 8.7 mg/dL (8.4-10.2) 10/05/17 05:30 Phosphorus 1.5 mg/dl (2.5-4.5) L 10/04/17 05:40 Magnesium 2.0 MG/DL (1.6-2.3) 10/03/17 05:20 Total Bilirubin 1.0 mg/dl (0.2-1.3) 10/05/17 05:30 Direct Bilirubin 1.2 mg/ml (0.0-0.4) H 10/04/17 05:40 AST 27 U/L (14-36) 10/05/17 05:30 ALT 51 U/L (9-52) 10/05/17 05:30 Alkaline Phosphatase 129 U/L (38-126) H 10/05/17 05:30 Total Protein 6.3 G/DL (6.3-8.2) 10/05/17 05:30 Albumin 3.0 g/dL (3.5-5.0) L 10/05/17 05:30 Globulin 3.3 gm/dL (2.2-3.9) 10/05/17 05:30 Albumin/Globulin Ratio 0.9 (1.0-2.1) L 10/05/17 05:30 Lipase 91 U/L (23-300) 09/30/17 20:41 Urine Opiates Screen Negative (NEGATIVE) 09/30/17 20:41 Urine Methadone Screen Negative (NEGATIVE) 09/30/17 20:41 Ur Barbiturates Screen Positive (NEGATIVE) H 09/30/17 20:41 Ur Phencyclidine Scrn Negative (NEGATIVE) 09/30/17 20:41 Ur Amphetamines Screen Negative (NEGATIVE) 09/30/17 20:41 U Benzodiazepines Scrn Negative (NEGATIVE) 09/30/17 20:41 U Oth Cocaine Metabols Negative (NEGATIVE) 09/30/17 20:41 U Cannabinoids Screen Negative (NEGATIVE) 09/30/17 20:41 - Hospital Course Hospital Course: STILL WEAK BUT ABDOMINAL PAIN IMPROVED PASSING GAS Discharge Exam - Head Exam Head Exam: NORMAL INSPECTION - Eye Exam Eye Exam: EOMI, Normal appearance, PERRL Pupil Exam: NORMAL ACCOMODATION, PERRL - GI/Abdominal Exam GI & Abdominal Exam: Normal Bowel Sounds - Rectal Exam Rectal Exam: NORMAL INSPECTION - Neurological Exam Neurological exam: Alert, CN II-XII Intact, Normal Gait, Oriented x3, Reflexes Normal - Psychiatric Exam Psychiatric exam: Normal Affect, Normal Mood - Skin Skin Exam: Dry, Intact, Normal Color, Warm Discharge Plan - Follow Up Plan Condition: SERIOUS Disposition: HOME/ ROUTINE Patient education suggested?: Yes Instructions: Cholecystectomy, Laparoscopic Surgery, Cholecystitis (DC) Additional Instructions: follow up with primary MD 1 week Referrals: Luis Beckham MD [Staff Provider] - Paul Gong MD [Staff Provider] -
[2017-10-05 16:15] VITALS: BP 124/74; PULSE 63; O2SAT 96
== END 2017-10-05 19:36 | disposition home or self-care (01) | DRG 493 ==
LOC: H.ER 18:31 → H.ERHOLD 22:33 → H.MEDSURG1 10-01 00:06
PROVIDERS: ADMIT Internal Medicine Pulmonary Disease; ATTEND Internal Medicine Pulmonary Disease
PROC: 0FT44ZZ Resection of Gallbladder, Percutaneous Endoscopic Approach (ICD-10-PCS; principal; 2017-10-02 09:30)
PROC: CF251ZZ Tomographic (Tomo) Nuclear Medicine Imaging of Liver using Technetium 99m (Tc-99m) (ICD-10-PCS; 2017-10-03)
DX: K85.90 Acute pancreatitis without necrosis or infection, unspecified (principal); K81.0 Acute cholecystitis; E87.6 Hypokalemia; E87.8 Other disorders of electrolyte and fluid balance, not elsewhere classified; E78.5 Hyperlipidemia, unspecified; K59.00 Constipation, unspecified; E83.51 Hypocalcemia; E83.39 Other disorders of phosphorus metabolism